=== PATIENT | male | born 1990 | race Caucasian/White ===

== ENCOUNTER 2016-10-17 22:55 | Emergency (ER) | payer OTHER ==
[~2016-10-17] VITALS: Ht 188 cm; Wt 113.4 kg
--- NOTE | ~2016-10-17 | EKG ---
[address] [address] ELECTROCARDIOGRAM REPORT Name: KRYSTAL INGRAM Room #: [facility]#: [id number] Admission: 10/17/16 Attend Phys: Discharge: 10/18/16 Date of : 88 Report #: [id number] THIS REPORT FOR: //name// [facility] ED Test Date: 2016-10-17 Test Time: 23:19:11 Pat Name: KRYSTAL INGRAM Department: Room: Gender: Spare Person: ARTUR : 1990 Requested By: Hany Bach Order Number: [id number] MD: Jone Galan Measurements Intervals [place] Rate: 83 P: 56 ND: 157 QRS: 45 QRSD: 95 T: 32 QT: 378 QTc: 445 Interpretive Statements Sinus rhythm No significant abnormality No previous ECG available for comparison Electronically Signed On 10-18-2016 7:37:29 CDT by Jone Galan [email or web address] <ELECTRONICALLY SIGNED> By: Jone Galan MD, [facility] 10/18/16 0737 2319 2319 Jone Galan MD, FACC /EPI
[2016-10-17 23:44] LABS: HEMATOCRIT 48.3 % (42.0-52.0); HEMOGLOBIN 16.5 gm/dL (14.0-18.0); MCH 29.4 pg (26.0-34.0); MCHC 34.1 g/dL (28.0-37.0); MCV 86.1 fL (80.0-100.0); PLATELET COUNT 133 thou/uL (150-400); RBC 5.61 mil/uL (4.50-6.00); RDW 13.5 % (10.5-14.5); WBC 13.1 thou/uL (4.0-11.0)
[2016-10-17 23:47] LABS: CALCIUM 9.4 mg/dL (8.5-10.1); CREATININE 1.2 mg/dL (0.6-1.3); POTASSIUM 3.3 mmol/L (3.5-5.1)
[2016-10-17 23:48] LABS: MANUAL DIFF YES
[2016-10-17 23:51] LABS: ALBUMIN 4.5 g/dL (3.4-5.0); TOTAL BILIRUBIN 0.7 mg/dL (<0.1-1.0); TOTAL PROTEIN 7.8 g/dL (6.4-8.2)
[2016-10-18 00:13] LABS: ABSOLUTE NEUTROPHILS 11.4 thou/uL (1.4-8.2); TOTAL CELL COUNT 100
[2016-10-18 00:15] LABS: AMP/METHAMP Negative (Negative); BARBITURATES Negative (Negative); BENZODIAZEPINES Negative (Negative); COCAINE Negative (Negative); METHADONE Negative (Negative); OPIATES Negative (Negative); PCP Negative (Negative); THC Negative (Negative)
[2016-10-18] MEDS ORDERED: ZOFRAN ODT4 MG PO (01:28)
[2016-10-18 02:03] VITALS: BP 132/84
== END 2016-10-18 02:06 | disposition home or self-care (01) ==
LOC: ER 22:55
PROVIDERS: Emergency Medicine
DX: R55 Syncope and collapse (principal); R10.9 Unspecified abdominal pain; R11.0 Nausea; F17.210 Nicotine dependence, cigarettes, uncomplicated